=== PATIENT | female | born 1965 | race Caucasian/White ===

== ENCOUNTER → 2020-01-03 | Outpatient (CLI) | payer OTHER ==
[~2020-01-03] MED LIST: ESTR1TAB27 PO; HYDR-3714 PO; HYDR25TA4 PO; LEVO75TA57 PO; SENN1TAB76 PO
[2020-01-03 08:05] LABS: CALCIUM 9.8 MG/DL (8.5-10.1); CREATININE SERUM 1.2 MG/DL (0.60-1.30); POTASSIUM 4.7 MMOL/L (3.6-5.0)
[2020-01-03 08:06] LABS: ALBUMIN 4.4 GM/DL (3.2-4.5); BILIRUBIN,TOTAL 0.6 MG/DL (0.1-1.0); TOTAL PROTEIN 7.3 GM/DL (6.4-8.2)
== END ==
LOC: LAB FS 07:10
PROVIDERS: ATTEND Family Medicine
DX: Z00.00 Encounter for general adult medical examination without abnormal findings (principal)
CPT/HCPCS: 36415; 80053; 80061; 84443

== ENCOUNTER → 2020-04-23 | Outpatient (CLI) | payer OTHER ==
[2020-04-23 12:15] LABS: ALBUMIN 4.5 GM/DL (3.2-4.5); BILIRUBIN,TOTAL 0.7 MG/DL (0.1-1.0); CALCIUM 9.9 MG/DL (8.5-10.1); CREATININE SERUM 1.15 MG/DL (0.60-1.30); POTASSIUM 4.4 MMOL/L (3.6-5.0); TOTAL PROTEIN 7.3 GM/DL (6.4-8.2)
== END ==
LOC: LAB FS 08:59
PROVIDERS: ATTEND Family Medicine
DX: Z00.00 Encounter for general adult medical examination without abnormal findings (principal)
CPT/HCPCS: 36415; 80053; 80061; 84443

== ENCOUNTER → 2021-03-26 | Outpatient (CLI) | payer OTHER ==
--- NOTE | 2021-03-26 10:50 | Diagnostic Imaging Report ---
INDICATION: Abdominal distention with constipation. Comparison with CT scan of 01/30/2021. FINDINGS: There is moderate amount of stool present throughout the colon. There does not appear to be impacted stool in the rectum. The stomach shows mild gaseous distention. Small bowel is not dilated. There is no organomegaly. No pathologic calcifications. Surgical clips are noted in the pelvis. IMPRESSION: Moderate amount of stool present though no evidence of bowel obstruction or impacted stool in the rectum. Dictated by: Dictated on workstation # [id number]
== END ==
LOC: RAD FS 09:58
PROVIDERS: ATTEND Registered Nurse Emergency
DX: K59.09 Other constipation (principal)
CPT/HCPCS: 74018